=== PATIENT | female | born 1940 | race Caucasian/White ===

== ENCOUNTER 2017-10-19 09:32 | Day surgery (SDC) | payer MEDICARE ==
[~2017-10-19 09:32] MED LIST: Acetaminophen TAB* 325 MG PO PRN; Buffered Lidocaine 0.9% SYRIN* 5 ML/SYR SYRINGE INTRADERM ONE
[2017-10-19] MEDS ORDERED: Midazolam* 1 MG/ML 2 ML VIAL (2 MG) ONE (10:40)
[2017-10-19 11:27] VITALS: BP 174/65
[2017-10-19] MEDS ORDERED: Povidone Iodine 5% OPTH* 30 ML BTL ONE (13:58)
[2017-10-19] MEDS ORDERED: acetaZOLAMIDE TAB* 250 MG ONE (13:58)
[2017-10-19] MEDS ORDERED: Lidocaine 1%* 5 ML VIAL ONE (13:58)
[2017-10-19] MEDS ORDERED: Neomycin/Polymy/Dex OPHTH.OIN* 3.5 GM ONE (13:58)
[2017-10-19] MEDS ORDERED: Ketorolac 0.5% OPHTH (NF) 0.5 % 5 ML BTL ONE (13:58)
[2017-10-19] MEDS ORDERED: Phenylephrine 2.5% OPTH.SOL* 2 ML BTL ONE (13:58)
[2017-10-19] MEDS ORDERED: Tropicamide 1% OPTH.SOL* BTL ONE (13:58)
[2017-10-19] MEDS ORDERED: Tetracaine 0.5% OPTH.SOL 4 ML* 1 DROP BTL ONE (13:58)
[2017-10-19] MEDS ORDERED: Cyclopentolate 1% OPTH.SOL* 2 ML BTL ONE (13:58)
--- NOTE | 2017-10-20 00:08 | OP ---
DATE OF OPERATION: 10/19/17 - [facility] DATE OF : 38 SURGEON: Jaswant Park MD. ANESTHESIA: Monitored anesthesia care. PRE-OP DIAGNOSIS: Cataract, right eye. POST-OP DIAGNOSIS: Cataract, right eye. OPERATIVE PROCEDURE: Extracapsular cataract extraction of the right eye with intraocular lens implant. IMPLANTS: SN60WF 27.5 diopter lens to the right eye. COMPLICATIONS: None. DESCRIPTION OF PROCEDURE: The patient was given phenylephrine 2.5% and cyclopentolate 1% eyedrops to the operative eye in the preoperative area. The patient was taken to the operating room where a time-out was taken to identify the correct patient, site and side of surgery. The patient's right eye was prepped and draped in the usual sterile fashion with 5% Betadine. A second time -out was taken to verify the correct patient, site and side of the surgery, and correct lens implant. A lid speculum was placed to the right eye. A 1-mm paracentesis blade was used to make a clear corneal incision in the superotemporal position. Preservative free 1% lidocaine was injected into the anterior chamber. DisCoVisc was then injected into the anterior chamber. A 2.75 mm keratome blade was used to make a triplanar incision at the inferotemporal position. A cystotome initiated a capsulorrhexis which was completed with Utrata forceps in a continuous and curvilinear manner. Hydrodissection of the lens was performed with BSS on a cannula. The lens could be spun in the capsular bag. The phacoemulsification handpiece was used with a divide and conquer technique to remove the nucleus with 24.5 CDE. The I/ A handpiece then removed the residual cortical lens material. DisCoVisc was then injected to inflate the capsular bag. The planned SN60WF 27.5 diopter lens was injected in the capsular bag. The residual DisCoVisc was removed from the eye with the I/A handpiece. The corneal incisions were hydrated and no leaks occurred at physiologic pressure around 20 mmHg. The lid speculum was removed and drapes removed. Maxitrol ointment was placed to the surface of the operative eye. An adhesive patch and shield was then placed on the operative eye. The patient was taken to the postoperative area in stable condition. [id number]/[id number] #: [id number] TONJA
== END 2017-10-19 11:40 | disposition home or self-care (01) ==
LOC: OREAST 09:32
PROVIDERS: ATTEND Student in an Organized Health Care Education/Training Program
DX: H25.811 Combined forms of age-related cataract, right eye (principal); H40.053 Ocular hypertension, bilateral; H43.813 Vitreous degeneration, bilateral; I10 Essential (primary) hypertension; G25.0 Essential tremor; R60.9 Edema, unspecified
CPT/HCPCS: A9270-GY; J2250; V2632

== ENCOUNTER 2017-10-26 10:03 | Day surgery (SDC) | payer MEDICARE ==
[2017-10-26] MEDS ORDERED: fentaNYL* 50 MCG/ML 2 ML VIAL (100 MCG VIAL) ONE (11:04)
[2017-10-26] MEDS ORDERED: Midazolam* 1 MG/ML 2 ML VIAL (2 MG) ONE (11:04)
[2017-10-26 12:15] VITALS: BP 135/60
[2017-10-26] MEDS ORDERED: Tetracaine 0.5% OPTH.SOL 4 ML* 1 DROP BTL ONE (13:47)
[2017-10-26] MEDS ORDERED: Neomycin/Polymy/Dex OPHTH.OIN* 3.5 GM ONE (13:47)
[2017-10-26] MEDS ORDERED: Povidone Iodine 5% OPTH* 30 ML BTL ONE (13:47)
[2017-10-26] MEDS ORDERED: Ketorolac 0.5% OPHTH (NF) 0.5 % 5 ML BTL ONE (13:47)
[2017-10-26] MEDS ORDERED: Tropicamide 1% OPTH.SOL* BTL ONE (13:47)
[2017-10-26] MEDS ORDERED: Phenylephrine 2.5% OPTH.SOL* 2 ML BTL ONE (13:47)
[2017-10-26] MEDS ORDERED: acetaZOLAMIDE TAB* 250 MG ONE (13:47)
[2017-10-26] MEDS ORDERED: Lidocaine 1%* 5 ML VIAL ONE (13:47)
[2017-10-26] MEDS ORDERED: Cyclopentolate 1% OPTH.SOL* 2 ML BTL ONE (13:47)
--- NOTE | 2017-10-27 08:21 | OP ---
DATE OF OPERATION: 10/26/17 - [facility] DATE OF : 38 SURGEON: Jaswant Park MD ANESTHESIA: Monitored anesthesia care. PRE-OP DIAGNOSIS: Cataract, left eye. POST-OP DIAGNOSIS: Cataract, left eye. OPERATIVE PROCEDURE: Extracapsular cataract extraction of the left eye with intraocular lens implant. IMPLANTS: SN60WF 27.0 diopter lens to the left eye. COMPLICATIONS: None. DESCRIPTION OF PROCEDURE: The patient was given phenylephrine 2.5% and cyclopentolate 1% eye drops to the operative eye in the preoperative area. The patient was taken to the operating room where a time-out was taken to identify the correct patient, site, and side of surgery. The patient's left eye was prepped and draped in the usual sterile fashion with 5% Betadine. A second time -out was taken to verify the correct patient, site, and side of surgery and correct lens implant. A lid speculum was placed to the left eye. A 1-mm paracentesis blade was used to make a clear corneal incision in the inferotemporal position. Preservative free 1% lidocaine was injected into the anterior chamber. DisCoVisc was then injected into the anterior chamber. A 2.75 mm keratome blade was used to make a triplanar incision at the superotemporal position. A cystotome initiated a capsulorrhexis which was completed with Utrata forceps in a continuous and curvilinear manner. Hydrodissection of the lens was performed with BSS on a cannula. The lens could be spun in the capsular bag. The phacoemulsification handpiece was used with a divide- and-conquer technique to remove the nucleus with 40.18 CDE. The I/A handpiece then removed the residual cortical lens material. DisCoVisc was injected to inflate the capsular bag. The planned SN60WF 27.0 diopter lens was injected into the capsular bag. The residual DisCoVisc was removed from the eye with the I/A handpiece. The corneal incisions were hydrated and no leaks occurred at physiologic pressure around 20 mmHg per palpation. The lid speculum was removed and drapes removed. Maxitrol ointment was placed to the surface of the operative eye. An adhesive patch and shield was then placed on the operative eye. The patient was taken to the postoperative area in stable condition. [id number] #: [id number] MTDD
== END 2017-10-26 12:28 | disposition home or self-care (01) ==
LOC: OREAST 10:03
PROVIDERS: ATTEND Student in an Organized Health Care Education/Training Program
DX: H25.812 Combined forms of age-related cataract, left eye (principal); H40.053 Ocular hypertension, bilateral; H43.813 Vitreous degeneration, bilateral; I10 Essential (primary) hypertension; G25.0 Essential tremor; Z68.41 Body mass index [BMI] 40.0-44.9, adult
CPT/HCPCS: A9270-GY; J2250; J3010; V2632

== ENCOUNTER 2024-06-01 16:26 | Inpatient (IN) ==
[2024-06-01 16:46] LABS: ABS Basophils 0.1 10^3/uL (0.0-0.1); ABS Eosinophils 0.1 10^3/uL (0.0-0.5); ABS Lymphocytes 1.3 10^3/uL (1.0-4.8); ABS Monocytes 0.9 10^3/uL (0.0-0.9); ABS Neutrophils 6.3 10^3/uL (1.5-7.6); Eosinophil % 1.3 %; Hematocrit 37.2 % (35-45); Hemoglobin 12.8 g/dL (11.5-14.3); Lymphocyte % 15.2 %; Mean Corpuscular Hemoglobin 32.2 pg (27-33); Mean Corpuscular Hgb Conc 34.3 g/dL (31-36); Mean Corpuscular Volume 93.9 fL (80-97); Mean Platelet Volume 7.6 fL (7.5-11.2); Platelet Count 296 10^3/uL (150-450); Red Blood Count 3.96 10^6/uL (3.63-4.92); Red Cell Distribution Width 14.6 % (12-17); White Blood Count 8.7 10^3/uL (3.8-11.8)
[2024-06-01] MEDS ORDERED: Iodixanol 320 (CONTRAST) 100 ML SDV IV ONE (16:49)
[2024-06-01 17:04] LABS: Activated Partial Thrombo Time 30.6 seconds (26.0-38.0); INR 1.07 (0.85-1.14)
[2024-06-01] MEDS: TENECTEPLASE 50 MG VIAL KIT 5 MG/ML (reconstituted) IV ONE (17:05)
[2024-06-01] MEDS ORDERED: Lorazepam PYXIS KEY PRN ×2 (17:06→17:40)
[2024-06-01] MEDS: LORazepam 2 mg VIAL 1 ml IV PUSH ONE ×2 (17:08→18:00)
[2024-06-01] MEDS: Labetalol IV 5 MG/ML 20 ml VIAL IV PUSH ONE ×2 (17:15→18:54)
[2024-06-01 17:37] LABS: Albumin 4.1 g/dL (3.5-5.7); Albumin/Globulin Ratio 1.2 (1-3); Calcium 9.4 mg/dL (8.6-10.3); Direct Bilirubin 0.1 mg/dL (0.03-0.18); Globulin 3.4 g/dL (2-4); Indirect Bilirubin 0.7 mg/dL (0.3-1.0); Potassium 4.2 mmol/L (3.5-5.0); Total Bilirubin 0.8 mg/dL (0.2-1.0); Total Protein 7.5 g/dL (6.4-8.9)
[2024-06-01 18:30] LABS: Creatinine, Serum 0.92 mg/dL (0.51-0.95); HDL Cholesterol 51.8 mg/dL; eGFR CKD-EPI 61.4 (>60)
[2024-06-01] MEDS: LORazepam 2 MG/ML 1 mL Syringe IV ONE (18:56)
[2024-06-01] MEDS ORDERED: Dextrose 50% Syringe 50 ml 25 GM/50 ML SYRINGE IV PUSH PRN (19:22)
[2024-06-01] MEDS: Iohexol 350 (CONTRAST) 500 ML MDV IV ONE (19:57)
[2024-06-01 21:18] LABS: Magnesium 1.8 mg/dL (1.9-2.7); Phosphorus 2.6 mg/dL (2.5-5.0)
[2024-06-01] MEDS: hydrALAZINE 20 mg/ml 1 ML Vial IV IV SLOW PU PRN (23:01)
[2024-06-02 02:39] LABS: Urine Appearance Clear; Urine Bacteria Absent /HPF (Absent); Urine Bilirubin Negative (Negative); Urine Blood 1+ (Negative); Urine Color Yellow; Urine Glucose Trace (Negative); Urine Ketones 1+ (Negative); Urine Nitrite Negative (Negative); Urine Protein 2+ (>=100 mg/dL) (Negative); Urine Red Blood Cell 1+(3-5/hpf) /HPF (0-Trace); Urine Specific Gravity >1.050 (1.002-1.030); Urine Squamous Epithelial Cell Present /HPF (Absent); Urine Urobilinogen 1+ (Negative); Urine White Blood Cell Absent /HPF (0-Trace)
[2024-06-02 06:12] LABS: Calcium 8.6 mg/dL (8.6-10.3); Creatinine, Serum 1.02 mg/dL (0.51-0.95); Magnesium 1.7 mg/dL (1.9-2.7); Phosphorus 3.7 mg/dL (2.5-5.0); eGFR CKD-EPI 54.2 (>60)
[2024-06-02 06:18] LABS: ABS Lymphocytes 1.1 10^3/uL (1.0-4.8); ABS Neutrophils 6.5 10^3/uL (1.5-7.6); Hematocrit 32.8 % (35-45); Hemoglobin 11.1 g/dL (11.5-14.3); Lymphocyte % 12.4 %; Mean Corpuscular Hemoglobin 31.8 pg (27-33); Mean Corpuscular Volume 93.5 fL (80-97); Mean Platelet Volume 8.4 fL (7.5-11.2); Platelet Count 244 10^3/uL (150-450); Red Cell Distribution Width 14.2 % (12-17); White Blood Count 8.6 10^3/uL (3.8-11.8)
[2024-06-02 06:19] LABS: Venous Bicarbonate HCO3 27.3 mmol/L (24-28)
[2024-06-02] MEDS ORDERED: Sulfur Hexaflouride MICROSPHR 25 MG VIAL ONE (07:37)
[2024-06-02] MEDS: Magnesium Sulfate 2 gm BAG 2 GM/50 ML BAG IVPB ONE (07:38)
[2024-06-02] MEDS: Sulfur Hexaflouride MICROSPHR 25 MG VIAL IV PRN (07:49)
[2024-06-02] MEDS: DULoxetine DR 20 mg CAP PO SCH (11:05)
[2024-06-02] MEDS: Acetaminophen IV 1 GM/100ML 1,000 MG/100 ML BAG IV PRN (13:10)
[2024-06-02] MEDS: Carbidopa/Levodop 25/250MG TAB PO SCH (14:36)
[2024-06-02] MEDS ORDERED: Lisinopril/HCTZ 20/12.5 TB(NF) PO SCH (19:00)
[2024-06-02] MEDS: Enoxaparin 40 MG/0.4 ML SYR SUBCUT SCH (19:29)
[2024-06-03 06:36] LABS: ABS Eosinophils 0.1 10^3/uL (0.0-0.5); ABS Lymphocytes 1.6 10^3/uL (1.0-4.8); ABS Neutrophils 4.8 10^3/uL (1.5-7.6); Eosinophil % 0.9 %; Hematocrit 33.7 % (35-45); Hemoglobin 11.5 g/dL (11.5-14.3); Lymphocyte % 20.9 %; Mean Corpuscular Hemoglobin 32.2 pg (27-33); Mean Corpuscular Hgb Conc 34.2 g/dL (31-36); Mean Corpuscular Volume 94.3 fL (80-97); Mean Platelet Volume 8.2 fL (7.5-11.2); Platelet Count 244 10^3/uL (150-450); Red Blood Count 3.58 10^6/uL (3.63-4.92); Red Cell Distribution Width 14.5 % (12-17); White Blood Count 7.5 10^3/uL (3.8-11.8)
[2024-06-03 07:00] LABS: Calcium 8.7 mg/dL (8.6-10.3); Creatinine, Serum 0.97 mg/dL (0.51-0.95); Magnesium 2.3 mg/dL (1.9-2.7); Phosphorus 4.1 mg/dL (2.5-5.0); Potassium 3.5 mmol/L (3.5-5.0); eGFR CKD-EPI 57.6 (>60)
[2024-06-03] MEDS: Furosemide 20 mg/2 ml IV VIAL IV ONE (10:02)
[2024-06-03 13:45] VITALS: BP 133/56
[2024-06-03] MEDS ORDERED: Nystatin TOP POWDER 15 GM BTL TOPICAL SCH (21:00)
== END 2024-06-03 17:43 | disposition home or self-care (01) | DRG 61 ==
LOC: ED 16:26 → SUATTDRO 17:26 → EDHOLD 17:26 → ICU 20:09 → MEDTELE 06-02 22:11
PROVIDERS: ADMIT Internal Medicine Critical Care Medicine; ATTEND Hospitalist